=== PATIENT | female | born 1955 | race Caucasian/White ===

== ENCOUNTER 2016-12-08 08:21 | Emergency (ER) | payer OTHER ==
[~2016-12-08] VITALS: Ht 162.6 cm; Wt 64.4 kg
--- NOTE | 2016-12-08 08:36 | NUR ---
Pt report received from AISHWARYA Saleh. Pt here for U/S to R/O DVT. Pt s/p Right hip sx on 12/05/2016 and is experiencing increased pain and swelling to RLE. Dsg to Right hip clean, dry, intact. Neg Rosemary's sign to RLE. Pt denies c/o pain or discomfort when supine. Pt states pain 10/10 with weight bearing.
--- NOTE | 2016-12-08 08:36 | NUR ---
Patient to ER bed 6 to gown for evaluation. Side rails up. Report given to Nabeel NEFF.
[2016-12-08 08:37] VITALS: BP_SYST 162
--- NOTE | 2016-12-08 08:40 | NUR ---
Dr. Quintanilla at bedside to assess pt.
[2016-12-08 10:27] VITALS: BP_SYST 155
--- NOTE | 2016-12-08 10:27 | NUR ---
Patient given written and verbal discharge instructions and verbalizes understanding. ER MD discussed with patient the results and treatment provided. Patient in stable condition. ID arm band removed. Patient educated on pain management and to follow up with PMD. Pain Scale 2/10, tolerable. Opportunity for questions provided and answered.
== END 2016-12-08 10:27 | disposition home or self-care (01) ==
LOC: SED 08:21
DX: M25.451 Effusion, right hip (principal); I10 Essential (primary) hypertension; Z88.1 Allergy status to other antibiotic agents; Z91.040 Latex allergy status; Z91.048 Other nonmedicinal substance allergy status; Z96.641 Presence of right artificial hip joint
CPT/HCPCS: 93971; 99284